=== PATIENT | female | born 1940 | race Caucasian/White ===

== ENCOUNTER 2016-02-28 19:59 | Emergency (ER) | payer OTHER ==
[~2016-02-28] VITALS: Ht 149.9 cm; Wt 56.7 kg
[~2016-02-28 19:59] MED LIST: ALBUTEROL 3 ML3 ML INH; AMOXIL 875 MG875 MG PO; AVELOX400 MG PO; BENTYL20 MG PO; DIOVAN HCT 25 M1 TAB PO; FLEXERIL 5MG TAB5 MG PO; LANSOPRAZOLE30 MG PO; PERCOCET 325 MG1 TA2 PO; PREDNISONE10 MG PO; PROAIR HFA0.09 MG/Ac PO; PROMETH-CODEIN 65 ML PO; ROBITUSSIN W/CO10 ML PO; SYMBICORT 160/41 PUF INH; TESSALON PERLE100 M1 PO; TESSALON PERLE100 MG PO; TYLENOL #31 TAB PO; ZOFRAN ODT4 MG PO
--- NOTE | 2016-02-28 20:27 | ED CARDIAC/CP/PALPITATIONS ---
History of Present Illness General Chief Complaint: Chest Pain Stated Complaint: "MY CHEST IS BURNING SINCE LAST NIGHT" Source: patient, old records Exam Limitations: no limitations Vital Signs & Intake/Output Vital Signs & Intake/Output Vital Signs Date Time Temp Pulse Resp B/P Pulse O2 O2 Flow FiO2 Ox Delivery Rate 02/27 2129 97.5 90 18 130/67 96 Room Air 02/27 2127 98 Room Air 02/27 2051 98.8 02/27 2006 98.8 97 20 149/76 98 Room Air Allergies Coded Allergies: Penicillins (Mild, HIVES 02/28/16) Reconcile Medications Albuterol Sulfate (Proair Hfa) 0.09 MG/Actuation TENA 1-2 PUFF PO Q4-6 PRN PRN BREATHING PROBLEMS (Reported) Albuterol Sulfate (Proventil) 2.5 MG/3 ML NEB 3 ML INH Q6 SHORTNESS OF BREATH Benzonatate (Tessalon Perle) 100 MG CAPSULE 1-2 CAP PO TID PRN COUGH Budesonide/Formoterol Fumara (Symbicort 160-4.5 Mcg Inhaler) 160 MCG/4.5 MCG PUF 2 PUF INH BID PRN COPD (Reported) Cyclobenzaprine (Flexeril 5MG Tab) 5 MG TAB 1 TAB PO Q8H PRN MUSCLE RELAXANT Famotidine (Pepcid) 20 MG TABLET 1 TAB PO BID GERD Hydrochlorothiazide/Valsarta (Diovan Hct 25 MG-160 MG) 1 TAB TAB 1 TAB PO DAILY BP (Reported) Lansoprazole 30 MG CAPSULE.DR 1 CAP PO DAILY GI (Reported) Moxifloxacin Hydrochloride (Avelox) 400 MG TAB 1 TAB PO DAILY PNEUMONIA OXYCODONE HCL/ACETAMINOPHEN (Percocet 5-325 MG Tablet) 325 MG/5 MG TAB 1 TAB PO Q6 PRN pain Promethazine HCl/Codeine (Prometh-Codein 6.25-10 MG/5 Ml) 5 ML SYRUP 5-10 ML PO TID PRN COUGH ONE HUNDRED TWENTY...[id number] Robitussin AC (Guaifenesin-Codeine Syrup) 10 ML UDC 10 ML PO QHS COUGH Please take the prescribed dose at bedtime Triage Note: TRIAGE: PATIENT TO ER FROM HOME REPORTING 5/10 BURNING TO L INTO R CHEST/SHOULDERS/ HEAD X 2 DAYS. REPORTS "DON'T KNOW IF ITS REFLUX, FEELS LIKE IT." DENIES V/D/SOB. REPORTS HX EMPHYSEMA W/ EXERTIONAL SOB. BELCHING NOTED IN TRIAGE. EKG COMPLLETED, NSR. Triage Nurses Notes Reviewed? yes Onset: Abrupt Duration: day(s): (2), constant Timing: recent history Quality/Severity: moderate, burning Location: central Radiation: no radiation Activities at Onset: EATING Prior Chest Pain/Card Workup: no prior chest pain Nitro Today/Relief: no nitro taken today Aspirin Today: no aspirin today Associated Symptoms: DENIES HPI: 75-year-old female with history of COPD presents to emergency room complaining of substernal chest pain nonradiating for the past 2 days it came on after eating. She describes the pain as a burning sensation across her chest that is nonradiating. She denies any arm or back or abdominal pain no nausea vomiting or diarrhea. The patient has a history of reflux and states this feels similar. She took her medication at home for the same however states it did not help. She has not attempted anything else for her symptoms. There's been a recent fall trauma or heavy lifting. She denies any pain with inspiration no cough no hemoptysis no fever no chills Past History Travel History Traveled to [place] past 21 day No Medical History Any Pertinent Medical History? see below for history Neurological: vertigo EENT: NONE Cardiovascular: hypertension Respiratory: COPD, emphysema Gastrointestinal: diverticulitis, GERD, Ulcer Cyst on the pancer Hepatic: NONE Renal: NONE Musculoskeletal: spinal stenosis Psychiatric: NONE Endocrine: NONE Blood Disorders: NONE Cancer(s): NONE TENNIS PROFESSIONAL/Reproductive: NONE History of MRSA: Yes History of VRE: No History of CDIFF: No Surgical History Surgical History: cholecystectomy, C-SPINE SURGERY Psychosocial History Who do you live with Patient/Self Services at Home None What is your primary language Lithuanian Tobacco Use: Refused to answer Family History Family History, If Any: Relation not specified for: *No pertinent family history Hx Contributory? No Review of Systems Review of Systems Constitutional: Reports: see HPI. All Other Systems: Reviewed and Negative Comments Review of systems: See HPI, All other systems negative. Constitutional, no chills no fever, no malaise HEENT: No visual changes no sore throat no congestion, Cardiovascular: chest pain , no palpitation , Skin, no jaundice no rashes, no change in skin Respiratory: No dyspnea no cough no sputum GI: No nausea no vomiting, no diarrhea, : No dysuria Muscle skeletal: No joint pain no back pain, no neck pain, Neurologic: No numbness no headache Psych: No stress Heme/endocrine: No bruising no bleeding Immunology: No lymphadenopathy Physical Exam Physical Exam General Appearance: well developed/nourished, alert, awake Cardiovascular: regular rate/rhythm Comments: Well-developed well-nourished person in no acute distress HEENT: Normal EENT exam; PERRL, EOMI, HEAD is atraumatic. moist mucous membranes. Neck: Supple,normal range of motion Back: Nontender, no CVA tenderness. Full range of motion Cardiovascular: Regular rate and rhythms no murmurs rubs Respiratory: Chest tender.There were no bony deformities, no asymmetry. No respiratory distress. Patient speaking in full complete sentences. Breath sounds clear to auscultation bilaterally: NO W/R/R Abdomen: Soft, nontender nondistended, no appreciable organomegaly. Normal bowel sounds. No rebound/guarding, Extremity: No edema, full range of motion of extremities, Neuro: Alert oriented x3, motor sensory normal, There were no obvious focal neurologic abnormalities. Skin: No appreciable rash on exposed skin, skin is warm and dry. Psych: Mood and affect is normal, memory and judgment is normal. Core Measures ACS in differential dx? Yes Severe Sepsis Present: No Septic Shock Present: No Progress Differential Diagnosis: AMI, aortic dissection, atrial fibrillation, cholecystitis, CHF/pulm edema, costochondritis, hypovolemia, hyperthyroid, musculoskeletal pain, myocarditis, pancreatitis, pericarditis, pneumonia, pneumothorax, PSVT, pulmonary embolism, PUD/GERD, PVCs/PACs, respiratory failure , rib fracture, sepsis, unstable angina, V-fib/V-Tach Plan of Care: Orders Procedure Date/time Status TROPONIN LEVEL 02/27 2011 Complete COMPREHENSIVE METABOLIC PANEL 02/27 2011 Complete CBC WITHOUT DIFFERENTIAL 02/27 2011 Complete EKG 02/27 1999 Active Laboratory Tests 02/28/162020: Anion Gap 8, Estimated GFR > 60, BUN/Creatinine Ratio 20.0, Glucose 128 H, Calcium 9.5, Total Bilirubin 0.4, AST 22, ALT 27, Alkaline Phosphatase 71, Troponin I < 0.01, Total Protein 6.8, Albumin 4.2, Globulin 2.6, Albumin/ Globulin Ratio 1.6 02/28/16 2015: CBC w Diff NO MAN DIFF REQ, RBC 4.91, MCV 83.5, MCH 28.5, RDW 13.2, MPV 8.8, Gran % 67.6, Lymphocytes % 20.8, Monocytes % 8.1, Eosinophils % 2.4, Basophils % 1.1, Absolute Granulocytes 4.9, Absolute Lymphocytes 1.5, Absolute Monocytes 0.6 , Absolute Eosinophils 0.2, Absolute Basophils 0.1, PUBS MCHC 34.2 Labs ordered old records reviewed patient may do a GI cocktail 02/28/2016 9:09:42 PM discussed with the patient at length all of her lab results pending x-ray, she reports she's been feeling improved with GI cocktail. Symptoms been present for the past 2 days do not believe she requires a repeat troponin given pain has been improved with GI cocktail symptoms are consistent with a gastritis 02/28/2016 9:57:04 PM discussed with the patient at length her x-ray findings she feels improved with the Pepcid and GI cocktail E the patient requires a repeat troponin given duration of symptoms and improvement with GI cocktail Pepcid advise close follow-up with Dr. Villagomez ulcer primary care physician this week advised return anytime sooner symptoms worsen she feels comfortable plan answered all her questions cleared for discharge (LO HERNÁNDEZ,BRAD) Diagnostic Imaging: Viewed by Me: Radiology Read. Discussed w/RAD: Radiology Read. Radiology Impression: PATIENT: ISMAEL BROWN PRESENT AGE: 75 PATIENT ACCOUNT NO: [id number] : 39 LOCATION: [facility] ORDERING PHYSICIAN: BRAD HERNÁNDEZ SERVICE DATE: 02/28/16 EXAM TYPE: RAD - XRY-CHEST XRAY, PA AND LATERAL EXAMINATION: XR CHEST CLINICAL INFORMATION: Chest pain. Dyspnea. COMPARISON: Chest x-ray 11/17/2015 TECHNIQUE: PA and lateral views of the chest were obtained. FINDINGS: Linear scarring or subsegmental atelectasis at lung bases similar prior chest x-ray. No acute infiltrate. No pulmonary vascular congestion or pleural effusion. Cardiac and mediastinal contours are normal. Heart size is normal. IMPRESSION: No acute change of the chest. DICTATED BY: MASSIMO GUSMAN MD DATE/TIME DICTATED:02/28/162108 TURNING MACHINE OPERATOR HELPER:RAY DATE/TIME TRANSCRIBED:02/28/162108 CONFIDENTIAL, DO NOT COPY WITHOUT APPROPRIATE AUTHORIZATION. <Electronically signed in Other Vendor System> SIGNED BY: MASSIMO GUSMAN MD 02/28/162119 Initial ED EKG: NORMAL SINUS AT 90, NO ACUTE st SEGMENT CHANGES NORMAL AXIS Prior EKG: unchanged (10/2015) Departure Departure Disposition: HOME OR SELF CARE Condition: Stable Clinical Impression Primary Impression: GERD (gastroesophageal reflux disease) Secondary Impressions: Atypical chest pain Referrals: MASSIMO CALLOWAY MD (PCP/Family) Additional Instructions: [place] diet no fatty spicy greasy foods. Follow-up with your primary care physician on Tuesday as well as her territory sales executive Dr. Avitia. Pepcid as directed, return anytime sooner with any concerns Departure Forms: Customer Survey General Discharge Information Prescriptions: Current Visit Scripts Famotidine (Pepcid) 1 TAB PO BID #20 TAB Critical Care Note Critical Care Note Critical Care Time: non-applicable
[2016-02-28 20:32] LABS: ABSOLUTE BASOPHIL COUNT 0.1 /CUMM (0.0-0.2); ABSOLUTE EOSINOPHIL COUNT 0.2 /CUMM (0.0-0.7); ABSOLUTE GRANULOCYTE CT 4.9 /CUMM (1.4-6.5); ABSOLUTE LYMPH COUNT 1.5 /CUMM (1.2-3.4); ABSOLUTE MONOCYTE COUNT 0.6 /CUMM (0.10-0.60); BASOPHIL % 1.1 % (0.0-2.0); EOSINOPHIL % 2.4 % (0-5); GRANULOCYTE % 67.6 % (42.2-75.2); MEAN CORPUSCULAR HGB 28.5 PG (27.0-31.0); MEAN CORPUSCULAR HGB CONC 34.2 G/DL (33.0-37.0); MEAN CORPUSCULAR VOLUME 83.5 FL (81.0-99.0); MEAN PLATELET VOLUME 8.8 FL (7.4-10.4); PLATELET COUNT 207 /CUMM (130-400); RBC DISTRIBUTION WIDTH 13.2 % (11.5-14.5); RED BLOOD CELL CT 4.91 /CUMM (4.20-5.40); WHITE BLOOD CELL COUNT 7.3 /CUMM (4.8-10.8)
--- NOTE | 2016-02-28 21:20 | RADIOLOGY REPORT ---
EXAMINATION: XR CHEST CLINICAL INFORMATION: Chest pain. Dyspnea. COMPARISON: Chest x-ray 11/17/2015 TECHNIQUE: PA and lateral views of the chest were obtained. FINDINGS: Linear scarring or subsegmental atelectasis at lung bases similar prior chest x-ray. No acute infiltrate. No pulmonary vascular congestion or pleural effusion. Cardiac and mediastinal contours are normal. Heart size is normal. IMPRESSION: No acute change of the chest.
[2016-02-28 21:30] VITALS: BP 130/67
[2016-02-28] MEDS ORDERED: PEPCID20 M1 PO (21:48)
== END 2016-02-28 22:05 ==
LOC: ERH 19:59
PROVIDERS: Emergency Medicine
DX: K21.9 Gastro-esophageal reflux disease without esophagitis (principal); R07.89 Other chest pain
CPT/HCPCS: 93005; 93010; J3101

== ENCOUNTER 2016-04-08 19:33 | Emergency (ER) | payer OTHER ==
[~2016-04-08] VITALS: Ht 149.9 cm; Wt 61.2 kg
[~2016-04-08 19:33] MED LIST changes: +PEPCID20 M1 PO
[2016-04-08] MEDS ORDERED: ALBUTEROL2.5 MG/3 M INH/SOL (20:23)
[2016-04-08] MEDS ORDERED: PROAIR HFA8.5 GM INH (20:24)
[2016-04-08] MEDS ORDERED: SYMBICORT 16010.2 GM INH (20:24)
[2016-04-08] MEDS ORDERED: PREVACID30 M1 PO (20:25)
[2016-04-08] MEDS ORDERED: DIOVAN HCT 1601 EAC1 PO (20:25)
[2016-04-08] MEDS ORDERED: CLEOCIN HCL300 M1 PO (20:44)
[2016-04-08] MEDS ORDERED: TYLENOL WITH C1 EACH PO (20:44)
--- NOTE | 2016-04-08 20:45 | ED EAR COMPLAINT ---
History of Present Illness General Chief Complaint: Headache Stated Complaint: HEAD PRESSURE Source: patient Exam Limitations: no limitations Vital Signs & Intake/Output Vital Signs & Intake/Output Vital Signs Date Time Temp Pulse Resp B/P Pulse O2 O2 Flow FiO2 Ox Delivery Rate 04/08 2052 98.7 92 18 143/74 93 04/08 1953 98.2 78 16 175/80 98 Room Air Room Air Allergies Coded Allergies: Penicillins (Mild, HIVES 04/08/16) Reconcile Medications Albuterol Sulfate 2.5 MG/3 ML (0.083 %) VIAL.NEB 1 Vial INH/TY Q6H SOB ( Reported) Albuterol Sulfate (Proair Hfa) 90 MCG HFA.AER.AD 1-2 PUF INH Q4-6 PRN PRN RESPIRATORY (Reported) Budesonide/Formoterol Fumarate (Symbicort 160-4.5 Mcg Inhaler) 160 MCG-4.5 MCG/ ACTUATION HFA.AER.AD 2 PUF INH BID PRN COPD (Reported) Clindamycin HCl (Cleocin HCl) 300 MG CAPSULE 1 CAP PO TID OTITIS MEDIA Lansoprazole (Prevacid) 30 MG CAPSULE.DR 1 CAP PO DAILY GI (Reported) Tylenol With Codeine (Tylenol With Codeine #3 Tablet) 300 MG-30 MG TABLET 1-2 TAB PO Q6H PRN PAIN Valsartan/Hydrochlorothiazide (Diovan Hct 160-25 MG Tablet) 160 MG-25 MG TABLET 1 TAB PO DAILY BP (Reported) Triage Note: PT TO TRIAGE WITH TOP AND LEFT SIDE OF HEAD PAIN FOR 2 DAYS. PT STATES SHE WENT TO HER ENT TODAY FOR THE PAIN THINKING IT WAS HER LEFT EAR WHICH GETS CLOGGED OFTEN. PT STATES HER BP WAS ELVATED THERE AND DR FORREST ORDERED BW TODAY. PT DENIES N/V, DIZZINESS, VISION CHANGES. PT HAS NO NEURO DEFICITS. SHE IS ALERT AND ORIENTED AND WALKED WITH A STEADY GAIT TO RM 21 AFTER REFUSING A WHEELCHAIR. Triage Nurses Notes Reviewed? yes HPI: 75-year-old female with right ear pain for the last 2 days radiating into the temporal region. She has slight hearing loss in that side. There has been no trauma. She has history of ear infections. She was seen by ENT today, she states that she had an evaluation there, she had a laryngoscopy in the office, they also Center for blood tests which I reviewed which is his CV considered an ESR which were normal, she states that the ENT do not see anything abnormal on his evaluation. She presents here with continued severe pain into the right ear. There is no discharge. There is no rash. There are no visual changes. she also complaints of sore throat (MALIHA OLIVARES) Past History Travel History Traveled to [place] past 21 day No Medical History Any Pertinent Medical History? see below for history Neurological: vertigo EENT: NONE Cardiovascular: hypertension Respiratory: COPD, emphysema Gastrointestinal: diverticulitis, GERD, Ulcer Cyst on the pancer Hepatic: NONE Renal: NONE Musculoskeletal: spinal stenosis Psychiatric: NONE Endocrine: NONE Blood Disorders: NONE Cancer(s): NONE RADIO PRODUCER/Reproductive: NONE History of MRSA: Yes History of VRE: No History of CDIFF: No Surgical History Surgical History: cholecystectomy, C-SPINE SURGERY Psychosocial History Who do you live with Patient/Self Services at Home None What is your primary language Maldivian Tobacco Use: Never used ETOH Use: denies use Illicit Drug Use: denies illicit drug use Family History Family History, If Any: Relation not specified for: *No pertinent family history Hx Contributory? No (MALIHA OLIVARES) Review of Systems Review of Systems Constitutional: Reports: see HPI. EENTM: Reports: see HPI. Respiratory: Reports: no symptoms. Cardiovascular: Reports: no symptoms. GI: Reports: no symptoms. Genitourinary: Reports: no symptoms. Musculoskeletal: Reports: no symptoms. Skin: Reports: no symptoms. Neurological/Psychological: Reports: no symptoms. Hematologic/Endocrine: Reports: no symptoms. Immunologic/Allergic: Reports: no symptoms. All Other Systems: Reviewed and Negative (MALIHA OLIVARES) Physical Exam Physical Exam Ears: Bilateral: canal normal. Comments: Well-developed well-nourished no apparent distress. HEENT: Atraumatic, extraocular motion intact Left tympanic membrane and external auditory canal are normal. Right tympanic membrane with mild erythema and serous fluid noted inferiorly, mild bulging and decreased light reflex. Pharynx is within normal limits. Neck: Supple, no lymphadenopathy Back: Nontender Respiratory: No respiratory distress Extremities: No edema, full range of motion Neuro: Alert and oriented x3 Psych: Mood affect normal, normal memory normal judgment. Skin: Warm and dry, no rash on exposed skin (MALIHA OLIVARES) Progress Differential Diagnoses I considered the following diagnoses in my evaluation of the patient: (Shingles, CVA, TIA Plan of Care: Current Medications Sig/Bindu Start time Last Medication Dose Stop Time Status Admin Clindamycin 300 MG ONCE ONE 04/08 2044 UNVr (Cleocin 150MG Cap) 04/08 2045 Initial ED EKG: none Comments: Patient appears to have the start of an ear infection, it is erythematous and there is serous fluid noted inferior tympanic membrane when compared bilaterally is different. She is placed on clindamycin and given Tylenol with codeine for pain. Recommend ENT follow-up in the next 3-5 days if no better. (MALIHA OLIVARES) Departure Departure Disposition: HOME OR SELF CARE Condition: Stable Clinical Impression Primary Impression: Otitis media, right Qualifiers: Otitis media type: serous Chronicity: acute Recurrence: not specified as recurrent Qualified Code: H65.01 - Acute serous otitis media, right ear Referrals: BRODIE ROMO,MASSIMO Lombardo (PCP/Family) Additional Instructions: Take antibiotics as directed for your ear infection, take Tylenol with Codeine as needed for pain. Follow-up with ENT in the next 3-5 days if symptoms continue. Departure Forms: Customer Survey General Discharge Information Prescriptions: Current Visit Scripts Tylenol With Codeine (Tylenol With Codeine #3 Tablet) 1-2 TAB PO Q6H PRN PAIN #15 Clindamycin HCl (Cleocin HCl) 1 CAP PO TID #21 CAP (MALIHA OLIVARES) PA/IT SECURITY ADMINISTRATOR Co-Sign Statement Statement: ED Attending supervision documentation- x I saw and evaluated the patient. I have also reviewed all the pertinent lab results and diagnostic results. I agree with the findings and the plan of care as documented in the PA's/IT SECURITY ADMINISTRATOR's documentation. [] I have reviewed the ED Record and agree with the PA's/IT SECURITY ADMINISTRATOR's documentation. [] Additions or exceptions (if any) to the PAs/IT SECURITY ADMINISTRATOR's note and plan are summarized below: [] (COURT ROMO,DARA)
[2016-04-08 20:53] VITALS: BP 143/74
== END 2016-04-08 21:09 ==
LOC: ERH 19:33
DX: H66.91 Otitis media, unspecified, right ear (principal)

== ENCOUNTER 2016-07-22 12:20 | Emergency (ER) | payer OTHER ==
[~2016-07-22] VITALS: Ht 149.9 cm; Wt 59.0 kg
[~2016-07-22 12:20] MED LIST changes: +ALBUTEROL2.5 MG/3 M INH/SOL; +CLEOCIN HCL300 M1 PO; +DIOVAN HCT 1601 EAC1 PO; +PREVACID30 M1 PO; +PROAIR HFA8.5 GM INH; +SYMBICORT 16010.2 GM INH; +TYLENOL WITH C1 EACH PO
--- NOTE | 2016-07-22 12:53 | ED DYSPNEA/ASTHMA COMPLAINT ---
History of Present Illness General Chief Complaint: General Adult Stated Complaint: COPD/BILATERAL RIB PAIN Source: patient Exam Limitations: no limitations Vital Signs & Intake/Output Vital Signs & Intake/Output Vital Signs Date Time Temp Pulse Resp B/P B/P Pulse O2 O2 Flow FiO2 Mean Ox Delivery Rate 07/22 1731 97.4 89 12 129/71 96 Room Air 07/22 1535 90 26 152/68 97 Room Air 07/22 1451 97 07/22 1449 98.9 78 18 129/60 100 07/22 1446 99 Room Air 07/22 1228 97.1 96 18 153/84 96 Room Air Allergies Coded Allergies: Penicillins (Mild, HIVES 04/08/16) Reconcile Medications Albuterol Sulfate 2.5 MG/3 ML (0.083 %) VIAL.NEB 1 Vial INH/TY Q6H SOB ( Reported) Albuterol Sulfate (Proair Hfa) 90 MCG HFA.AER.AD 1-2 PUF INH Q4-6 PRN PRN RESPIRATORY (Reported) Methylprednisolone. (Medrol) 4 MG TAB.DS.PK 1 DP PO AD INFLAMMATION 6 on day 1 then reduce by one tablet daily until gone Pantoprazole Sodium 40 MG TABLET.DR 1 TAB PO DAILY GI (Reported) Tylenol With Codeine (Tylenol With Codeine #4 Tablet) 300 MG-60 MG TABLET 1 TAB PO BID PRN PAIN Valsartan/Hydrochlorothiazide (Diovan Hct 160-25 MG Tablet) 160 MG-25 MG TABLET 1 TAB PO DAILY BP (Reported) Triage Note: 75 Y/O FEMALE C/O BILATERAL RIB PAIN SINCE YESTERDAY, "IT FEELS LIKE A BAND AROUND ME". PT DENIES C/P. DENIES SOB BUT STATES PAIN MAKES IT DIFFICULT TO BREATH. PT HAS HX COPD BUT STATES SHE IS UNABLE TO TELL IF THIS FEELS SIMILIAR. STATES "ITS LIKE A SPASM". REPORTS GOOD APPETITE/PO INTAKE. AFEBRILE. TAKEN FOR EKG Triage Nurses Notes Reviewed? yes Onset: Abrupt Duration: constant Timing: recent history Severity: severe Activities at Onset: none HPI: Patient is a 75-year-old female with past medical history of COPD not on home O2 , peptic ulcer disease, and hypertension who presents emergency room for concerns last night of acute onset of bilateral rib severe sharp pain. Denies any trauma. Patient states that deep inhalation makes worse and patient also has dyspnea on exertion. Patient has chronic nonproductive cough with no changes. Denies any fever chills hemoptysis leg swelling arm pain jaw pain nausea vomiting (BRAD KWONG) Past History Travel History Traveled to [place] past 21 day No Medical History Any Pertinent Medical History? 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 No (BRAD KWONG) Review of Systems Review of Systems Constitutional: Reports: no symptoms. EENTM: Reports: no symptoms. Respiratory: Reports: see HPI, short of breath. Cardiovascular: Reports: see HPI, chest pain. GI: Reports: no symptoms. Genitourinary: Reports: no symptoms. Musculoskeletal: Reports: no symptoms. Skin: Reports: no symptoms. Neurological/Psychological: Reports: no symptoms. Hematologic/Endocrine: Reports: no symptoms. Immunologic/Allergic: Reports: no symptoms. All Other Systems: Reviewed and Negative (BRAD KWONG) Physical Exam Physical Exam General Appearance: mild distress Respiratory: INTERCOSTAL POINT TENDERNESS NOTED NORMAL INSPECTION MILD EXPIRATORY WHEEZING NOTED NO RESPIRATORY DISTRESS Comments: HEENT: Normal EENT exam Neck: Supple, no lymphadenopathy, normal range of motion without pain or tenderness Back: Nontender, no CVA tenderness Cardiovascular: Regular rate and rhythms no murmurs rubs or gallops, normal JVP Abdomen: Soft, nontender nondistended, no appreciable organomegaly. Normal bowel sounds. No ascites Extremity: No edema, no calf tenderness to palpation, normal and equal pulses. Neuro: Alert oriented x3, motor sensory normal, Skin: No appreciable rash on exposed skin, skin is warm and dry. Psych: Mood and affect is normal, memory and judgment is normal. Core Measures ACS in differential dx? Yes Severe Sepsis Present: No Septic Shock Present: No (BRAD KWONG) Progress Differential Diagnosis: asthma, AMI, bronchitis, costochondritis, CHF, COPD, musculoskeletal pain, pericarditis, pulmonary embolism, pneumonia, pneumothorax, rib fracture, unstable angina Plan of Care: Orders Procedure Date/time Status Regular Diet 07/23 B Active TROPONIN LEVEL 07/22 1730 Complete EKG 07/22 1730 Active Telemetry/Down Filler 07/22 1355 Active TROPONIN LEVEL 07/22 1337 Complete D-DIMER 07/22 1337 Complete COMPREHENSIVE METABOLIC PANEL 07/22 1337 Complete CBC WITHOUT DIFFERENTIAL 07/22 1337 Complete EKG 07/22 1226 Active Current Medications Sig/Bindu Start time Last Medication Dose Stop Time Status Admin Hydromorphone HCl 1 MG ONCE ONE 07/22 1615 CAN (Dilaudid) 07/22 1616 Laboratory Tests 07/22/16 1736: Troponin I < 0.01 07/22/16 1436: Anion Gap 10, Estimated GFR > 60, BUN/Creatinine Ratio 23.3, Glucose 83, Calcium 9.6, Total Bilirubin 0.5, AST 25, ALT 43, Alkaline Phosphatase 53, Troponin I < 0.01, Total Protein 6.5, Albumin 4.1, Globulin 2.4, Albumin/Globulin Ratio 1.7, D-Dimer High Sensitivty < 200, CBC w Diff NO MAN DIFF REQ, RBC 4.55, MCV 82.0, MCH 28.3, RDW 13.4, MPV 9.4, Gran % 74.1, Lymphocytes % 17.7 L, Monocytes % 6.2 , Eosinophils % 1.5, Basophils % 0.5, Absolute Granulocytes 4.6, Absolute Lymphocytes 1.1 L, Absolute Monocytes 0.4, Absolute Eosinophils 0.1, Absolute Basophils 0, PUBS MCHC 34.5 Patient on initial examination has concerns of bilateral intercostal rib pain that is reproduced with deep inhalation and palpation however no signs of trauma or mechanism of injury has occurred prior to arrival. Patient was not hypoxic oxygen saturation 96% room air patient does have mild wheezing noted patient was initially given nebulizer treatment and steroids where on reexamination wheezing has completely resolved. Patient was initially given morphine for pain however she states that does not make any better Patient and was given Percocet which improved her symptoms. D-dimer was unremarkable Patient will receive second troponin 3 hours after the initial onset from first set of troponin. Patient was reevaluated multiplications noted to be no apparent distress Repeat troponin was unremarkable Upon discharge patient looks well in no apparent distress and will comply with discharge instructions and had no questions. Patient most likely has chest wall intercostal pain at this time I do not SUSPECT patient TO have cardiovascular involvement for her symptoms patient also had resolution of wheezing prior to discharge discussed disposition plan with Dr. Mclain who agrees (BRAXTON HERNÁNDEZ,BRAD) Diagnostic Imaging: Viewed by Me: Radiology Read. Radiology Impression: no acute abnormality, no fracture Initial ED EKG: normal p-waves, normal QRS complex, normal sinus rhythm, 89 BPM, NSR Comments: PATIENT: ISMAEL BROWN PRESENT AGE: 75 PATIENT ACCOUNT NO: [id number] : 39 LOCATION: [facility] ORDERING PHYSICIAN: BRAD HERNÁNDEZ SERVICE DATE: 07/22/16 EXAM TYPE: RAD - XRY-CHEST XRAY, PA AND LATERAL EXAMINATION: XR CHEST CLINICAL INFORMATION: 75-year-old female patient with shortness of breath. COMPARISON: Chest x-ray on 02/28/2016. TECHNIQUE: PA and lateral erect views of the chest. FINDINGS: The heart is normal in size. There is moderate uncoiling of the thoracic aorta. Bilateral eventrations of the diaphragms are evident. Platelike atelectasis is seen in both lung bases secondary to these eventrations. There is no evidence of acute pulmonary parenchymal or pleural disease. The patient's gallbladder has been surgically removed. IMPRESSION: No acute disease. DICTATED BY: HEIDY HALEY MD DATE/TIME DICTATED:07/22/161420 PUMP SERVICER:RAY DATE/TIME TRANSCRIBED:07/22/161420 (BRAD KWONG) Departure Departure Disposition: HOME OR SELF CARE Condition: Stable Clinical Impression Primary Impression: Rib pain Secondary Impressions: COPD (chronic obstructive pulmonary disease) Referrals: BRODIE ROMO,MASSIMO Lombardo (PCP/Family) Additional Instructions: As discussed if symptoms worsen return to emergency room. Begin the prescription Tylenol with Codeine for pain AND MEDROL DOSE BIN FOR INFLAMMATION. Prescriptions are waiting at [facility] continue home medications as directed If no better on Tuesday follow-up with your primary care doctor Departure Forms: Customer Survey General Discharge Information Prescriptions: Current Visit Scripts Tylenol With Codeine (Tylenol With Codeine #4 Tablet) 1 TAB PO BID PRN PAIN #5 TAB Methylprednisolone. (Medrol) 1 DP PO AD #1 DP 6 on day 1 then reduce by one tablet daily until gone (BRAD KWONG) PA/LEAD SOFTWARE ENGINEER Co-Sign Statement Statement: ED Attending supervision documentation- [X] I saw and evaluated the patient. I have also reviewed all the pertinent lab results and diagnostic results. I agree with the findings and the plan of care as documented in the PA's/LEAD SOFTWARE ENGINEER's documentation. [X] I have reviewed the ED Record and agree with the PA's/LEAD SOFTWARE ENGINEER's documentation. [] Additions or exceptions (if any) to the PAs/LEAD SOFTWARE ENGINEER's note and plan are summarized below: [] (TAWNYA ROMO,FANNY Lam) Critical Care Note Critical Care Note Critical Care Time: non-applicable (BRAD KWONG)
[2016-07-22] MEDS ORDERED: PANTOPRAZOLE SO40 M1 PO (13:56)
--- NOTE | 2016-07-22 14:30 | RADIOLOGY REPORT ---
EXAMINATION: XR CHEST CLINICAL INFORMATION: 75-year-old female patient with shortness of breath. COMPARISON: Chest x-ray on 02/28/2016. TECHNIQUE: PA and lateral erect views of the chest. FINDINGS: The heart is normal in size. There is moderate uncoiling of the thoracic aorta. Bilateral eventrations of the diaphragms are evident. Platelike atelectasis is seen in both lung bases secondary to these eventrations. There is no evidence of acute pulmonary parenchymal or pleural disease. The patient's gallbladder has been surgically removed. IMPRESSION: No acute disease.
[2016-07-22 15:36] LABS: ABSOLUTE BASOPHIL COUNT 0 /CUMM (0.0-0.2); ABSOLUTE EOSINOPHIL COUNT 0.1 /CUMM (0.0-0.7); ABSOLUTE GRANULOCYTE CT 4.6 /CUMM (1.4-6.5); ABSOLUTE LYMPH COUNT 1.1 /CUMM (1.2-3.4); ABSOLUTE MONOCYTE COUNT 0.4 /CUMM (0.10-0.60); BASOPHIL % 0.5 % (0.0-2.0); EOSINOPHIL % 1.5 % (0-5); GRANULOCYTE % 74.1 % (42.2-75.2); HEMATOCRIT 37.3 % (37-47); MEAN CORPUSCULAR HGB 28.3 PG (27.0-31.0); MEAN CORPUSCULAR HGB CONC 34.5 G/DL (33.0-37.0); MEAN PLATELET VOLUME 9.4 FL (7.4-10.4); PLATELET COUNT 190 /CUMM (130-400); RBC DISTRIBUTION WIDTH 13.4 % (11.5-14.5); RED BLOOD CELL CT 4.55 /CUMM (4.20-5.40); WHITE BLOOD CELL COUNT 6.2 /CUMM (4.8-10.8)
[2016-07-22 17:31] VITALS: BP 129/71
[2016-07-22] MEDS ORDERED: TYLENOL WITH C1 EAC1 PO (18:19)
[2016-07-22] MEDS ORDERED: MEDROL4 M2 PO (18:34)
== END 2016-07-22 18:53 ==
LOC: ERH 12:20
PROVIDERS: Physician Assistant
DX: J44.9 Chronic obstructive pulmonary disease, unspecified (principal); R07.81 Pleurodynia; Z87.891 Personal history of nicotine dependence
CPT/HCPCS: 1263; 93005; 93010; 96374; 96375; J2930